=== PATIENT | male | born 2000 | race African-American/Black ===

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

== ENCOUNTER 2019-01-08 09:27 | Emergency (ER) | payer MEDICAID ==
[~2019-01-08] VITALS: Ht 193 cm; Wt 88.5 kg
[2019-01-08 09:27] VITALS: BP_SYST 125
--- NOTE | 2019-01-08 09:27 | NUR ---
BROUGHT BACK TO BED #4 AND TRIAGED. REPORT GIVEN TO CANDIE
--- NOTE | 2019-01-08 10:00 | NUR ---
Patient arrived via POV, AAOx4, and ambulatory with a steady gait. Patient states c/c of left calf and posterior knee pain. He describes it as dull, constant, radiating to knee and thigh. Patient states pain began 5 days ago. Current pain level is 8/10. No recent trauma or injury. Patient has +2 PT and DP pulses. No variations of temperature to bilateral lower extremities. States he has been following up with systems trainer and has been in ice baths with no relief or decrease in swelling. Will continue to follow up and monitor.
[2019-01-08] MEDS ORDERED: IBUPROFEN 600 MG TABLET PO ONE (10:15)
[2019-01-08 10:21] LABS: BASOPHILS # (AUTO) 0.1 K/uL (0.0-0.2); BASOPHILS % (AUTO) 1.4 % (0.0-2.0); EOSINOPHILS # (AUTO) 0.1 K/uL (0.0-0.4); EOSINOPHILS % (AUTO) 0.8 % (0.0-4.0); HEMOGLOBIN 13.7 g/dL (14.0-18.0); LYMPHOCYTES # (AUTO) 0.9 K/uL (1.0-5.5); LYMPHOCYTES % (AUTO) 12.4 % (20.5-51.5); MEAN CORPUSCULAR HEMOGLOBIN 27 pg (27-31); MEAN CORPUSCULAR HGB CONC 32 % (32-36); MEAN CORPUSCULAR VOLUME 85 fL (79.0-98.0); MONOCYTES # (AUTO) 0.7 K/uL (0.0-1.0); MONOCYTES % (AUTO) 9.3 % (1.7-9.3); NEUTROPHILS # (AUTO) 5.4 K/uL (1.8-7.7); NEUTROPHILS % (AUTO) 76.1 % (40.0-70.0); PLATELET COUNT (AUTO) 178 K/uL (130-430); RED BLOOD CELL COUNT(AUTO) 5.04 MIL/uL (4.2-6.2); RED CELL DISTRIBUTION WIDTH 13.2 % (9.0-15.0); WHITE BLOOD COUNT (AUTO) 7.1 K/uL (4.5-11.0)
[2019-01-08 10:36] LABS: CALCIUM 9.4 mg/dL (8.4-11.0); CREATININE 1.18 mg/dL (0.55-1.30); POTASSIUM 5.3 mmol/L (3.5-5.1)
[2019-01-08 10:40] LABS: PROTHROMBIN TIME 10.6 SECS (9.5-12.5)
--- NOTE | 2019-01-08 11:33 | NUR ---
Per Dr. Loredo, no IV at this time.
[2019-01-08] MEDS ORDERED: ENOXAPARIN SODIUM 80 MG/0.8 ML SYRINGE SUBCUT ONE (12:30)
--- NOTE | 2019-01-08 12:50 | NUR ---
Patient refusing medication at this time, education provided. Continues to refuse medication. Will follow up.
[2019-01-08 12:52] VITALS: BP_SYST 128
--- NOTE | 2019-01-08 12:52 | NUR ---
Patient given written and verbal discharge instructions and verbalizes understanding. ER MD discussed with patient the results and treatment provided. Patient in stable condition. ID arm band removed. Rx of Xarelto given. Patient educated on pain management and to follow up with PMD. Pain Scale 2/10. Opportunity for questions provided and answered. Medication side effect fact sheet provided. Education provided regarding not playing contact sports, risk of bleeding/injury, and if any planned procedures or unplanned trauma to notify providers immediately of xarelto use. Patient verbalized understanding. Information provided for [facility] for primary care follow up.
== END 2019-01-08 12:52 | disposition home or self-care (01) ==
LOC: SED 09:27
DX: I82.432 Acute embolism and thrombosis of left popliteal vein (principal); D16.9 Benign neoplasm of bone and articular cartilage, unspecified
CPT/HCPCS: 36415; 73552; 73590-TC; 73700-TC; 80048; 85025; 85610-TC; 85730-TC; 93971; 99284

== ENCOUNTER 2019-04-15 06:53 | Emergency (ER) | payer MEDICAID ==
[~2019-04-15] VITALS: Ht 185.4 cm; Wt 85.7 kg
--- NOTE | 2019-04-15 06:55 | NUR ---
Placed in room 08 . Placed on campus monitor, blood pressure machine and pulse oximeter. To gown for exam. Side rails up.
--- NOTE | 2019-04-15 06:57 | NUR ---
Pt brought by friend, ambulatory, A&Ox4, pt presents to ER with generalized weakness, pt states he is taking blood thinners (Xarelto) Hx of blood clot on R leg, pt c/o nose bleeds , coughing blood and a metal taste on his mouth ,denies pain at this time, skin pink and warm, no bleeding noted at this time, respirations even and unlabored, cap refill <3, will cont to monitor.
[2019-04-15 07:00] VITALS: BP_SYST 101
[2019-04-15 08:17] LABS: BILIRUBIN,URINE NEGATIVE (NEGATIVE); BLOOD, URINE 1+ (NEGATIVE); CLARITY/URINE CLEAR (CLEAR); COLOR,URINE YELLOW (YELLOW); GLUCOSE,URINE NEGATIVE (NEGATIVE); KETONES,URINE NEGATIVE (NEGATIVE); LEUKOCYTE ESTERASE ,URINE NEGATIVE (NEGATIVE); NITRITE, URINE NEGATIVE (NEGATIVE); PROTEIN URINE 2+ (NEGATIVE); UROBILINOGEN,URINE 0.2 (0.2-1.0)
[2019-04-15 08:26] LABS: BASOPHILS # (AUTO) 0.1 K/uL (0.0-0.2); BASOPHILS % (AUTO) 2.2 % (0.0-2.0); EOSINOPHILS # (AUTO) 0.1 K/uL (0.0-0.4); EOSINOPHILS % (AUTO) 1.6 % (0.0-4.0); HEMATOCRIT 44.6 % (36-54); HEMOGLOBIN 14.6 g/dL (14.0-18.0); LYMPHOCYTES # (AUTO) 1.4 K/uL (1.0-5.5); LYMPHOCYTES % (AUTO) 42.5 % (20.5-51.5); MEAN CORPUSCULAR HEMOGLOBIN 28 pg (27-31); MEAN CORPUSCULAR HGB CONC 33 % (32-36); MEAN CORPUSCULAR VOLUME 85 fL (79.0-98.0); MONOCYTES # (AUTO) 0.4 K/uL (0.0-1.0); MONOCYTES % (AUTO) 13.4 % (1.7-9.3); NEUTROPHILS # (AUTO) 1.3 K/uL (1.8-7.7); NEUTROPHILS % (AUTO) 40.3 % (40.0-70.0); PLATELET COUNT (AUTO) 210 K/uL (130-430); RED BLOOD CELL COUNT(AUTO) 5.22 MIL/uL (4.2-6.2); RED CELL DISTRIBUTION WIDTH 14.2 % (9.0-15.0); WHITE BLOOD COUNT (AUTO) 3.3 K/uL (4.5-11.0)
[2019-04-15 08:28] LABS: INR 1.1 (0.80-1.20)
[2019-04-15 08:28] LABS: BACTERIA,URINE FEW /HPF (None Seen); WBC,URINE 0-3 /HPF (0-3)
[2019-04-15 08:31] LABS: BARBITURATE, URINE NEGATIVE (NEG <=200); BENZODIAZEPINE, URINE NEGATIVE (NEG <=150); COCAINE, URINE NEGATIVE (NEG <=150); METHAMPHETAMINES SCREEN,URINE NEGATIVE (NEG <=500); URINE AMPHETAMINE NEGATIVE (NEG <=500); URINE METHADONE NEGATIVE (NEG <=200)
[2019-04-15 08:32] LABS: CANNABINOID, URINE POSITIVE (NEG <=50); OPIATE, URINE NEGATIVE (NEG <=100); PHENCYCLIDINE SCREEN,URINE NEGATIVE (NEG <=25); UR TRICYCLIC ANTIDEPRESSANTS NEGATIVE (NEG <=300); URINE OXYCODONE SCREEN NEGATIVE (NEG <=100); URINE PROPOXYPHENE SCREEN NEGATIVE (NEG <=300)
--- NOTE | 2019-04-15 08:47 | NUR ---
Patient transported to radiology via , accompanied by manager trading.
[2019-04-15 08:54] LABS: ANION GAP 8 (5-15); CALCIUM 9.1 mg/dL (8.4-11.0); CHLORIDE 104 mmol/L (98-107); CREATININE 1.25 mg/dL (0.55-1.30); GLUCOSE 96 mg/dL (70-99); POTASSIUM 4.6 mmol/L (3.5-5.1); SODIUM SERUM 140 mmol/L (136-145); UREA NITROGEN, BLOOD 17 mg/dL (8-21)
[2019-04-15 08:55] LABS: GFR AFRICAN AMERICAN 96 mL/min (>90)
--- NOTE | 2019-04-15 09:00 | NUR ---
Dr Sands at bedside examining patient
[2019-04-15 09:04] LABS: ALANINE AMINOTRANSFERASE 18 U/L (12-78); ALCOHOL, BLOOD < 3 mg/dL (<10); ASPARTATE AMINOTRANSFERASE 24 U/L (10-37); FREE T4 (FREE THYROXINE) 1.1 ng/dl (0.8-1.5); TOTAL BILIRUBIN 1.2 mg/dL (0.0-1.0)
[2019-04-15 09:44] VITALS: BP_SYST 106
--- NOTE | 2019-04-15 09:45 | NUR ---
Patient given written and verbal discharge instructions and verbalizes understanding. ER MD discussed with patient the results and treatment provided. Patient in stable condition. ID arm band removed. No Rx given. Patient educated on pain management and to follow up with PMD. Pain Scale 0/10. Opportunity for questions provided and answered. Medication side effect fact sheet provided.
== END 2019-04-15 09:45 | disposition home or self-care (01) ==
LOC: SED 06:53
DX: F12.10 Cannabis abuse, uncomplicated (principal)
CPT/HCPCS: 36415; 70450; 71045; 80053; 80307; 81000; 82140; 83605; 83880; 84439; 84484; 85025; 85610; 87040; 93005; 99284; G0482

== ENCOUNTER 2019-08-01 18:19 | Emergency (ER) | payer MEDICAID ==
[~2019-08-01] VITALS: Ht 193 cm; Wt 90.7 kg
[2019-08-01 18:27] VITALS: BP_SYST 133
--- NOTE | 2019-08-01 18:31 | NUR ---
Patient to ER bed 5 to gown for evaluation. Side rails up. Report given to NEHEMIAS KHAN.
--- NOTE | 2019-08-01 18:34 | NUR ---
ER Dr. Perez at bedside examining patient.
--- NOTE | 2019-08-01 18:34 | NUR ---
Patient AAO x 4 ambulates to ER bed 05 with complaints of 5/10 aching L knee pain s/p fall x 1 day ago. Reports history of blood clot to the same leg and having a Rx for Xarelto. However, he is noncompliant with medication. Last dose of Xarelto was May 2019. Even chest rise and fall with respirations. Will continue to monitor.
--- NOTE | 2019-08-01 18:38 | NUR ---
Radiology department called at [phone] to contact on-call cardiac cath technologist to come in for impending US order.
--- NOTE | 2019-08-01 20:20 | NUR ---
Patient is back from ultrasound.
--- NOTE | 2019-08-01 21:49 | NUR ---
Patient given written and verbal discharge instructions and verbalizes understanding. ER MD Caceres discussed with patient the results and treatment provided. Patient in stable condition. ID arm band removed. No Rx given. Patient educated on pain management and to follow up with PMD. Pain Scale 0. Opportunity for questions provided and answered. Medication side effect fact sheet provided.
[2019-08-01 21:50] VITALS: BP_SYST 129
== END 2019-08-01 21:50 | disposition home or self-care (01) ==
LOC: SED 18:19
DX: S83.92XA Sprain of unspecified site of left knee, initial encounter (principal); W19.XXXA Unspecified fall, initial encounter; Y93.89 Activity, other specified; Y92.89 Other specified places as the place of occurrence of the external cause; Y99.8 Other external cause status
CPT/HCPCS: 93971; 99284

== ENCOUNTER 2020-02-02 09:16 | Emergency (ER) | payer MEDICAID ==
[~2020-02-02] VITALS: Ht 193 cm; Wt 95.7 kg
[2020-02-02 09:26] VITALS: BP_SYST 125
--- NOTE | 2020-02-02 09:33 | NUR ---
Patient to ER bed 3 to gown for evaluation. Side rails up. Report given to ERIN Ruvalcaba.
--- NOTE | 2020-02-02 09:35 | NUR ---
Patient presented to ER C/O left lower leg pain. Patient A&Ox4, ambulatory to ER, afebrile, skin pink and hot to touch, bilat pedal pulses present, swelling to left lower anterior leg, pain 8/10. Patient states he as pain to left lower leg x2 days and hx of blood clot with 6 months tx 2019
--- NOTE | 2020-02-02 09:40 | NUR ---
ER Dr. CHURCH at bedside examining patient.
[2020-02-02] MEDS ORDERED: NACL 0.9% 1,000 ML IV ONE (10:00)
[2020-02-02 10:40] LABS: CALCIUM 9.3 mg/dL (8.4-11.0); CREATININE 1.14 mg/dL (0.55-1.30); POTASSIUM 4.5 mmol/L (3.5-5.1)
[2020-02-02 10:44] LABS: BASOPHILS # (AUTO) 0.1 K/uL (0.0-0.2); BASOPHILS % (AUTO) 1.4 % (0.0-2.0); EOSINOPHILS # (AUTO) 0.1 K/uL (0.0-0.4); EOSINOPHILS % (AUTO) 3.9 % (0.0-4.0); HEMATOCRIT 45.5 % (36-54); HEMOGLOBIN 14.8 g/dL (14.0-18.0); LYMPHOCYTES # (AUTO) 1.2 K/uL (1.0-5.5); MEAN CORPUSCULAR HEMOGLOBIN 28 pg (27-31); MEAN CORPUSCULAR HGB CONC 33 % (32-36); MEAN CORPUSCULAR VOLUME 86 fL (79.0-98.0); MONOCYTES # (AUTO) 0.4 K/uL (0.0-1.0); MONOCYTES % (AUTO) 10.6 % (1.7-9.3); NEUTROPHILS # (AUTO) 1.9 K/uL (1.8-7.7); NEUTROPHILS % (AUTO) 52.1 % (40.0-70.0); PLATELET COUNT (AUTO) 198 K/uL (130-430); RED BLOOD CELL COUNT(AUTO) 5.28 MIL/uL (4.2-6.2); RED CELL DISTRIBUTION WIDTH 13.6 % (9.0-15.0); WHITE BLOOD COUNT (AUTO) 3.7 K/uL (4.5-11.0)
[2020-02-02 10:45] LABS: ALBUMIN 3.8 g/dL (3.4-4.8); TOTAL BILIRUBIN 0.9 mg/dL (0.0-1.0)
[2020-02-02] MEDS ORDERED: VANCOMYCIN HCL 1,000 MG in NS 250 ML IV ONE (10:45)
[2020-02-02] MEDS ORDERED: MEROPENEM 1 GM in NS 100 ML IV ONE (10:45)
[2020-02-02] MEDS ORDERED: VANCOMYCIN HCL 1000 MG/VIAL IV ONE (11:17)
[2020-02-02 11:48] VITALS: BP_SYST 125
--- NOTE | 2020-02-02 11:50 | NUR ---
Patient given written and verbal discharge instructions and verbalizes understanding. ER MD discussed with patient the results and treatment provided. Patient in stable condition. ID arm band removed. Rx of Xarelto given. Patient educated on pain management and to follow up with PMD. Pain Scale 3/10 . Opportunity for questions provided and answered. Medication side effect fact sheet provided.
== END 2020-02-02 11:50 | disposition home or self-care (01) ==
LOC: SED 09:16
DX: I82.402 Acute embolism and thrombosis of unspecified deep veins of left lower extremity (principal)
CPT/HCPCS: 36415; 80053; 85025; 87040; 93971; 99284; J2185; J3370; J7030

== ENCOUNTER 2020-11-23 15:59 | Emergency (ER) | payer MEDICAID ==
[~2020-11-23] VITALS: Ht 193 cm; Wt 95.3 kg
[2020-11-23 16:10] VITALS: BP_SYST 117
[2020-11-23 16:39] LABS: BILIRUBIN,URINE NEGATIVE (NEGATIVE); BLOOD, URINE NEGATIVE (NEGATIVE); CLARITY/URINE CLEAR (CLEAR); COLOR,URINE YELLOW (YELLOW); GLUCOSE,URINE NEGATIVE (NEGATIVE); KETONES,URINE NEGATIVE (NEGATIVE); LEUKOCYTE ESTERASE ,URINE NEGATIVE (NEGATIVE); NITRITE, URINE NEGATIVE (NEGATIVE); PH,URINE 7.5 (5.0-8.0); PROTEIN URINE 1+ (NEGATIVE)
[2020-11-23 17:00] LABS: BASOPHILS # (AUTO) 0.1 K/uL (0.0-0.2); BASOPHILS % (AUTO) 1.5 % (0.0-2.0); EOSINOPHILS % (AUTO) 0.6 % (0.0-4.0); HEMATOCRIT 42.5 % (36-54); HEMOGLOBIN 13.8 g/dL (14.0-18.0); LYMPHOCYTES # (AUTO) 1.6 K/uL (1.0-5.5); LYMPHOCYTES % (AUTO) 27.9 % (20.5-51.5); MEAN CORPUSCULAR HEMOGLOBIN 28 pg (27-31); MEAN CORPUSCULAR HGB CONC 33 % (32-36); MEAN CORPUSCULAR VOLUME 86 fL (79.0-98.0); MONOCYTES # (AUTO) 0.5 K/uL (0.0-1.0); MONOCYTES % (AUTO) 8.3 % (1.7-9.3); NEUTROPHILS # (AUTO) 3.4 K/uL (1.8-7.7); NEUTROPHILS % (AUTO) 61.7 % (40.0-70.0); PLATELET COUNT (AUTO) 206 K/uL (130-430); RED BLOOD CELL COUNT(AUTO) 4.95 MIL/uL (4.2-6.2); RED CELL DISTRIBUTION WIDTH 13.4 % (9.0-15.0); WHITE BLOOD COUNT (AUTO) 5.6 K/uL (4.5-11.0)
[2020-11-23 17:09] LABS: CALCIUM 8.6 mg/dL (8.4-11.0); CREATININE 1.5 mg/dL (0.55-1.30); POTASSIUM 4.2 mmol/L (3.5-5.1)
[2020-11-23 17:10] LABS: BACTERIA,URINE FEW /HPF (None Seen); RBC,URINE 0-3 /HPF (0-3); WBC,URINE 0-3 /HPF (0-3)
[2020-11-23 17:12] LABS: FINE GRANULAR CASTS,URINE 0-10 /LPF (None Seen); MUCUS,URINE 1+ /LPF (None Seen)
[2020-11-23 17:15] LABS: TOTAL BILIRUBIN 1.3 mg/dL (0.0-1.0)
[2020-11-23] MEDS ORDERED: DOCU-144 PO (18:27)
[2020-11-23] MEDS ORDERED: POLY17PO4 PO (18:27)
[2020-11-23 18:46] LABS: BARBITURATE, URINE NEGATIVE (NEG <=200); BENZODIAZEPINE, URINE NEGATIVE (NEG <=150); CANNABINOID, URINE POSITIVE (NEG <=50); COCAINE, URINE NEGATIVE (NEG <=150); METHAMPHETAMINES SCREEN,URINE NEGATIVE (NEG <=500); OPIATE, URINE NEGATIVE (NEG <=100); PHENCYCLIDINE SCREEN,URINE NEGATIVE (NEG <=25); UR TRICYCLIC ANTIDEPRESSANTS NEGATIVE (NEG <=300); URINE AMPHETAMINE NEGATIVE (NEG <=500); URINE METHADONE NEGATIVE (NEG <=200); URINE OXYCODONE SCREEN NEGATIVE (NEG <=100); URINE PROPOXYPHENE SCREEN NEGATIVE (NEG <=300)
[2020-11-23 19:24] VITALS: BP_SYST 116
== END 2020-11-23 19:24 | disposition home or self-care (01) ==
LOC: SED 15:59
DX: K59.00 Constipation, unspecified (principal); Z79.899 Other long term (current) drug therapy
CPT/HCPCS: 36415; 74018; 76700-TC; 80053; 80307; 81000; 85025; 85651-TC; 99285

== ENCOUNTER 2020-12-05 09:28 | Emergency (ER) | payer MEDICAID ==
[~2020-12-05] VITALS: Ht 185.4 cm; Wt 99.8 kg
[~2020-12-05 09:28] MED LIST: DOCU-144 PO; POLY17PO4 PO
[2020-12-05 09:37] VITALS: BP_SYST 117
[2020-12-05 10:36] LABS: BASOPHILS % (AUTO) 1.2 % (0.0-2.0); EOSINOPHILS # (AUTO) 0.1 K/uL (0.0-0.4); EOSINOPHILS % (AUTO) 1.6 % (0.0-4.0); HEMATOCRIT 43.2 % (36-54); HEMOGLOBIN 14.1 g/dL (14.0-18.0); LYMPHOCYTES # (AUTO) 1.3 K/uL (1.0-5.5); LYMPHOCYTES % (AUTO) 37.2 % (20.5-51.5); MEAN CORPUSCULAR HEMOGLOBIN 28 pg (27-31); MEAN CORPUSCULAR HGB CONC 33 % (32-36); MEAN CORPUSCULAR VOLUME 86 fL (79.0-98.0); MONOCYTES # (AUTO) 0.3 K/uL (0.0-1.0); MONOCYTES % (AUTO) 9.5 % (1.7-9.3); NEUTROPHILS # (AUTO) 1.8 K/uL (1.8-7.7); NEUTROPHILS % (AUTO) 50.5 % (40.0-70.0); PLATELET COUNT (AUTO) 184 K/uL (130-430); RED BLOOD CELL COUNT(AUTO) 5.01 MIL/uL (4.2-6.2); RED CELL DISTRIBUTION WIDTH 13.4 % (9.0-15.0); WHITE BLOOD COUNT (AUTO) 3.5 K/uL (4.5-11.0)
[2020-12-05 10:48] LABS: ANION GAP 5 (5-15); CALCIUM 8.6 mg/dL (8.4-11.0); CHLORIDE 106 mmol/L (98-107); CREATININE 1.34 mg/dL (0.55-1.30); GLUCOSE 98 mg/dL (70-99); POTASSIUM 4.3 mmol/L (3.5-5.1); SODIUM SERUM 142 mmol/L (136-145); UREA NITROGEN, BLOOD 11 mg/dL (8-21)
[2020-12-05 10:53] LABS: GFR AFRICAN AMERICAN 87 mL/min (>90)
[2020-12-05 10:54] LABS: PROTHROMBIN TIME 10.1 SECS (9.5-12.5)
[2020-12-05 11:02] LABS: ALANINE AMINOTRANSFERASE 26 U/L (12-78); ALBUMIN 3.7 g/dL (3.4-4.8); ASPARTATE AMINOTRANSFERASE 26 U/L (10-37); TOTAL BILIRUBIN 0.9 mg/dL (0.0-1.0)
[2020-12-05 11:20] LABS: C-REACTIVE PROTEIN QUANT < 0.2 mg/dL (0-0.5)
[2020-12-05] MEDS ORDERED: IBUP-1971 PO (11:59)
[2020-12-05] MEDS ORDERED: HYDR-3917 PO (11:59)
[2020-12-05 12:44] VITALS: BP_SYST 117
== END 2020-12-05 12:44 | disposition home or self-care (01) ==
LOC: SED 09:28
DX: S86.812A Strain of other muscle(s) and tendon(s) at lower leg level, left leg, initial encounter (principal); X58.XXXA Exposure to other specified factors, initial encounter; Y93.89 Activity, other specified; Y92.89 Other specified places as the place of occurrence of the external cause; Y99.8 Other external cause status
CPT/HCPCS: 36415; 80053; 85025; 85610-TC; 85730-TC; 86140; 93971; 99284

== ENCOUNTER 2021-02-17 11:21 | Emergency (ER) | payer MEDICAID ==
[~2021-02-17] VITALS: Ht 193 cm; Wt 93.0 kg
[~2021-02-17 11:21] MED LIST changes: +HYDR-3917 PO; +IBUP-1971 PO
[2021-02-17 11:25] VITALS: BP_SYST 138
--- NOTE | 2021-02-17 12:04 | NUR ---
Pt brought by self , A&Ox4, pt presents to ER with R foot / R ankle pain after practice, pt states he may step wrong, pedal pulses equal and strong.
--- NOTE | 2021-02-17 12:06 | NUR ---
Dr Villalobos evaluating patient in the triage room
--- NOTE | 2021-02-17 13:00 | NUR ---
ortho shoe and cruthces given per order
[2021-02-17] MEDS ORDERED: IBUP-1971 PO (13:05)
[2021-02-17] MEDS ORDERED: HYDR-3917 PO (13:05)
[2021-02-17 13:11] VITALS: BP_SYST 138
--- NOTE | 2021-02-17 13:12 | NUR ---
Patient given written and verbal discharge instructions and verbalizes understanding. ER MD discussed with patient the results and treatment provided. Patient in stable condition. ID arm band removed. Rx of ibuprofen and norco given. Patient educated on pain management and to follow up with PMD. Pain Scale 0/10. Opportunity for questions provided and answered. Medication side effect fact sheet provided.
== END 2021-02-17 13:12 | disposition home or self-care (01) ==
LOC: SED 11:21
DX: S93.601A Unspecified sprain of right foot, initial encounter (principal); Z79.899 Other long term (current) drug therapy; X50.9XXA Other and unspecified overexertion or strenuous movements or postures, initial encounter; Y93.89 Activity, other specified; Y92.89 Other specified places as the place of occurrence of the external cause; Y99.8 Other external cause status
CPT/HCPCS: 99284

== ENCOUNTER 2021-04-12 06:59 | Emergency (ER) | payer MEDICAID ==
[~2021-04-12] VITALS: Ht 193 cm; Wt 93.0 kg
[2021-04-12 07:05] VITALS: BP_SYST 101
--- NOTE | 2021-04-12 08:24 | NUR ---
Patient transported to radiology via wheelchair, accompanied by staff.
--- NOTE | 2021-04-12 08:40 | NUR ---
Pt. came in with pain to left lower leg 02/13, states yesterday while playing football was running and abruptly had to stop, had mild pain at that time but today woke up with increase of pain 02/13 and d/t hx. of DVT came to be evaluated, no heat or reddness at area, negative Homans sign.
--- NOTE | 2021-04-12 08:45 | NUR ---
VICKIE Howe at bedside examining patient.
--- NOTE | 2021-04-12 09:00 | NUR ---
Patient given written and verbal discharge instructions and verbalizes understanding. ER Dr. Jacques discussed with patient the results and treatment provided. Patient in stable condition. ID arm band removed. Rx of given. Patient educated on pain management and to follow up with PMD. Pain Scale 3. Opportunity for questions provided and answered. Medication side effect fact sheet provided.
[2021-04-12 09:03] VITALS: BP_SYST 121
== END 2021-04-12 09:00 | disposition home or self-care (01) ==
LOC: SED 06:59
DX: S86.812A Strain of other muscle(s) and tendon(s) at lower leg level, left leg, initial encounter (principal); Z79.899 Other long term (current) drug therapy; X50.9XXA Other and unspecified overexertion or strenuous movements or postures, initial encounter; Y93.89 Activity, other specified; Y92.89 Other specified places as the place of occurrence of the external cause; Y99.8 Other external cause status
CPT/HCPCS: 93971; 99284

== ENCOUNTER 2022-02-17 10:36 | Emergency (ER) | payer MEDICAID ==
[~2022-02-17] VITALS: Ht 190.5 cm; Wt 93.9 kg
[2022-02-17 10:40] VITALS: BP_SYST 108
--- NOTE | 2022-02-17 10:50 | NUR ---
PT BIBS WITH C/C OF LAYING IN BED LAST NIGHT AND APPROXIMATELY AT MIDNIGHT PT FELT BOTH LEGS BECOME NUMB. DENIES ANY PAIN. REPORTS HX OF DVT TO LEFT LOWER LEG IN 2019. DOES NOT TAKE ANY ANTICOAGULANTS CURRENTLY. HX OF TAKING XARELTO. REPORTS TINGLING TO BILATERAL FEET AND TOES. NO OTHER MEDICAL HX. NO HOME MEDS TAKEN.
--- NOTE | 2022-02-17 10:53 | NUR ---
PLACED IN BED 4
--- NOTE | 2022-02-17 11:00 | NUR ---
ER at bedside examining patient.
[2022-02-17 11:32] LABS: EOSINOPHILS # (AUTO) 0.1 K/uL (0.0-0.4); WHITE BLOOD COUNT (AUTO) 3.5 K/uL (4.8-10.8)
[2022-02-17 11:38] LABS: BASOPHILS # (AUTO) 0.1 K/uL (0.0-0.2); BASOPHILS % (AUTO) 1.8 % (0.0-2.0); EOSINOPHILS % (AUTO) 1.5 % (0.0-4.0); HEMOGLOBIN 13.7 g/dL (14.0-18.0); LYMPHOCYTES # (AUTO) 1.4 K/uL (1.0-5.5); LYMPHOCYTES % (AUTO) 41.1 % (20.5-51.5); MEAN CORPUSCULAR HEMOGLOBIN 28 pg (27-31); MEAN CORPUSCULAR HGB CONC 33 % (32-36); MEAN CORPUSCULAR VOLUME 86 fL (79.0-98.0); MONOCYTES # (AUTO) 0.4 K/uL (0.0-1.0); MONOCYTES % (AUTO) 12.5 % (1.7-9.3); NEUTROPHILS # (AUTO) 1.5 K/uL (1.8-7.7); NEUTROPHILS % (AUTO) 43.1 % (40.0-70.0); PLATELET COUNT (AUTO) 198 K/uL (130-430); RED BLOOD CELL COUNT(AUTO) 4.89 MIL/uL (4.2-6.2); RED CELL DISTRIBUTION WIDTH 13.6 % (9.0-15.0)
[2022-02-17 11:58] LABS: CALCIUM 9.1 mg/dL (8.4-11.0); CREATININE 1.25 mg/dL (0.55-1.30); POTASSIUM 4.9 mmol/L (3.5-5.1)
[2022-02-17 12:25] VITALS: BP_SYST 125
--- NOTE | 2022-02-17 13:02 | NUR ---
DC instructions given to patient, verbalized understanding.
== END 2022-02-17 12:28 | disposition home or self-care (01) ==
LOC: SED 10:36
DX: M79.662 Pain in left lower leg (principal); M79.661 Pain in right lower leg; Z79.899 Other long term (current) drug therapy
CPT/HCPCS: 36415; 80048; 83735; 84100; 85025; 93970; 99284